=== PATIENT | female | born 1995 ===

== ENCOUNTER 2017-02-20 14:17 | Emergency (ER) | payer OTHER ==
[2017-02-20 15:02] VITALS: BP 143/53
--- NOTE | 2017-03-09 14:34 | UC ---
Complaint Female HPI - HPI Summary HPI Summary: frequent painful urination began 02/16/17 - History Of Current Complaint Chief Complaint: UCGU Stated Complaint: URINARY Time Seen by Provider: 02/20/17 15:37 Hx Obtained From: Patient Hx Last Menstrual Period: 01/09/17 ?: No Onset/Duration: Sudden Onset, Lasting Days, Still Present Timing: Constant Severity Initially: Mild Severity Currently: Mild Pain Intensity: 0 Pain Scale Used: 0-10 Numeric Character: Burning Aggravating Factor(s): Urination Alleviating Factor(s): Position - Allergies/Home Medications Allergies/Adverse Reactions: Allergies Allergy/AdvReac Type Severity Reaction Status Date / Time Erythromycin AdvReac Vomiting Verified 02/22/17 12:00 PMH/Surg Hx/FS Hx/Imm Hx Previously Healthy: Yes - Surgical History Surgical History: Yes Surgery Procedure, Year, and Place: TONSILLECTOMY - Family History Known Family History: Positive: None Family History: no cardiovacular issues in family lineage - Social History Occupation: Student Lives: With Family Alcohol Use: Rare Substance Use Type: None Smoking Status (MU): Never Smoked Tobacco - Immunization History Vaccination Up to Date: Yes Review of Systems Constitutional: Negative Skin: Negative Eyes: Negative ENT: Negative Respiratory: Negative Cardiovascular: Negative Gastrointestinal: Negative Genitourinary: Dysuria, Frequency, Urgency Motor: Negative Neurovascular: Negative Musculoskeletal: Negative Neurological: Negative Psychological: Negative All Other Systems Reviewed And Are Negative: Yes Physical Exam Triage Information Reviewed: Yes Appearance: Well-Appearing, No Pain Distress, Well-Nourished Vital Signs: Initial Vital Signs Temp 98.5 F 02/20/17 14:56 Pulse 82 02/20/17 14:56 Resp 20 02/20/17 14:56 BP 143/53 02/20/17 14:56 Pulse Ox 100 02/20/17 14:56 Vital Signs Reviewed: Yes Eye Exam: Normal Eyes: Positive: Conjunctiva Clear ENT Exam: Normal ENT: Positive: Normal ENT inspection, Hearing grossly normal. Negative: Nasal congestion, Nasal drainage, Trismus, Muffled/hoarse voice Dental Exam: Normal Neck exam: Normal Neck: Positive: Supple, Nontender Respiratory Exam: Normal Respiratory: Positive: Chest non-tender, No respiratory distress, No accessory muscle use Cardiovascular Exam: Normal Cardiovascular: Positive: RRR, Pulses Normal, Brisk Capillary Refill Abdominal Exam: Normal Abdomen Description: Positive: Nontender, No Organomegaly, Soft. Negative: CVA Tenderness (R), CVA Tenderness (L) Bowel Sounds: Positive: Present Musculoskeletal Exam: Normal Musculoskeletal: Positive: Strength Intact, ROM Intact, No Edema Neurological Exam: Normal Neurological: Positive: Alert, Muscle Tone Normal Psychological Exam: Normal Skin Exam: Normal Complaint Female Dx - Course Course Of Treatment: culture urine, macrobid, azo, dash diet plan follow with pcp for BP recheck - Differential Dx/Diagnosis Differential Diagnosis/HQI/PQRI: Renal Colic, Urinary Tract Infection Provider Diagnoses: UTI, High blood pressure with out dx of Hypertension Discharge - Discharge Plan Condition: Stable Disposition: HOME Prescriptions: Nitrofurantoin Monohyd Macro [Macrobid] 100 mg PO BID #20 cap Phenazopyridine TAB* [Pyridium 100 mg TAB*] 100 mg PO TID PRN #6 tab PRN Reason: urinary burning Patient Education Materials: Urinary Tract Infection in Women (ED), DASH Eating Plan (ED), Hypertension (ED) Referrals: Lewis Olguin MD [Primary Care Provider] - 1 Week
== END 2017-02-20 16:03 | disposition home or self-care (01) ==
LOC: UCCORT 14:17
DX: N39.0 Urinary tract infection, site not specified (principal); Z32.02 Encounter for pregnancy test, result negative; R03.0 Elevated blood-pressure reading, without diagnosis of hypertension; Z88.1 Allergy status to other antibiotic agents
CPT/HCPCS: 81003; 84702; 87077; 87086; 99202; G0463

== ENCOUNTER 2017-02-22 11:22 | Emergency (ER) | payer OTHER ==
[2017-02-22 12:04] VITALS: BP 114/76
--- NOTE | 2017-02-22 12:42 | UC ---
Throat Pain/Nasal Ulises HPI - HPI Summary HPI Summary: patient has had sudden onset throat pain last night, no fever, patient was also treated for a UTI on 02/20 but still has burning and itching with urination. denies any Abdominal pain, flank pain. She is currently taking macrobid, and finished her pyridium. - History of Current Complaint Chief Complaint: UCGeneralIllness Stated Complaint: SORE THROAT Time Seen by Provider: 02/22/17 12:24 Hx Obtained From: Patient Hx Last Menstrual Period: 02/22/17 ?: No Onset/Duration: Sudden Onset, Lasting Days Severity: Moderate Cough: None Associated Signs & Symptoms: Positive: Dysphagia, Hoarseness - Epiglottits Risk Factors Epiglottis Risk Factors: Negative - Allergies/Home Medications Allergies/Adverse Reactions: Allergies Allergy/AdvReac Type Severity Reaction Status Date / Time Erythromycin AdvReac Vomiting Verified 02/22/17 12:00 Home Medications: Home Medications Norethindrone Acet & Eth Estra [Microgestin 1.5/30 1.5-30 mg-Mcg] 1 tab PO DAILY 02/22/17 [History Confirmed 02/22/17] PMH/Surg Hx/FS Hx/Imm Hx Previously Healthy: Yes - Surgical History Surgical History: Yes Surgery Procedure, Year, and Place: TONSILLECTOMY - Family History Known Family History: Negative: Hypertension - Social History Alcohol Use: None Substance Use Type: None Smoking Status (MU): Never Smoked Tobacco - Immunization History Vaccination Up to Date: Yes Review of Systems Constitutional: Negative Skin: Other - red scaly irritation on the perinuem, Eyes: Negative ENT: Sore Throat Respiratory: Cough Cardiovascular: Negative Gastrointestinal: Negative Genitourinary: Negative Motor: Negative Neurovascular: Negative Musculoskeletal: Negative Neurological: Negative Psychological: Negative All Other Systems Reviewed And Are Negative: Yes Physical Exam Triage Information Reviewed: Yes Appearance: Well-Appearing, Well-Nourished, Pain Distress Vital Signs: Initial Vital Signs Temp 97.7 F 02/22/17 12:01 Pulse 98 02/22/17 12:01 Resp 16 02/22/17 12:01 BP 114/76 02/22/17 12:01 Pulse Ox 99 02/22/17 12:01 Vital Signs Reviewed: Yes Eye Exam: Normal Eyes: Positive: Conjunctiva Clear ENT Exam: Normal ENT: Positive: Pharyngeal erythema, TMs normal, Tonsillar swelling, Tonsillar exudate Dental Exam: Normal Neck exam: Normal Neck: Positive: Supple, Nontender, No Lymphadenopathy Respiratory Exam: Normal Respiratory: Positive: Chest non-tender, Lungs clear, Normal breath sounds Cardiovascular Exam: Normal Cardiovascular: Positive: RRR, No Murmur, Pulses Normal Abdominal Exam: Normal Abdomen Description: Positive: Nontender, No Organomegaly, Soft, Other: - red scalling irritation of perineum Bowel Sounds: Positive: Present Musculoskeletal Exam: Normal Musculoskeletal: Positive: Strength Intact, ROM Intact, No Edema Neurological Exam: Normal Neurological: Positive: Alert, Muscle Tone Normal Psychological Exam: Normal Skin Exam: Normal Throat Pain/Nasal Course/Dx - Course Course Of Treatment: hx obtained, exam performed, meds reviewed, rapid strep obtained and is positive, treated for yeast infection. d/c macrobid, urine culture sent, will call and treat if needed. She denies any lower adominal pain. pyridum not effective with the pain she is describing. - Differential Dx/Diagnosis Differential Diagnosis/HQI/PQRI: Influenza, Laryngitis, Otitis Media, Pharyngitis, Sinusitis, Tonsillitis, URI Provider Diagnoses: strep throat. yeast infection Discharge - Discharge Plan Condition: Stable Disposition: HOME Patient Education Materials: Vulvovaginal Candidiasis (ED) Additional Instructions: 1. take the medication as prescribed. 2. Increase your fluid intake 3. apply the monistat cream or coconut oil to soothe the outer irritation. 4. Culture results should be available in 2-3 days, will call if needs treatment.
== END 2017-02-22 12:56 | disposition home or self-care (01) ==
LOC: UCCORT 11:22
DX: J02.0 Streptococcal pharyngitis (principal); B37.3 Candidiasis of vulva and vagina; R30.0 Dysuria; Z87.440 Personal history of urinary (tract) infections; Z88.1 Allergy status to other antibiotic agents
CPT/HCPCS: 87077; 87086; 87651; 99212; G0463